=== PATIENT | male | born 1965 | race Hispanic/Latino ===

== ENCOUNTER 2019-12-09 03:01 | Emergency (ER) | payer MEDICARE | END 2019-12-09 03:29 | LOC: EDH 03:01 | DX: F41.9 Anxiety disorder, unspecified (principal); F32.9 Major depressive disorder, single episode, unspecified ==

== ENCOUNTER 2019-12-10 11:23 | Emergency (ER) | payer MEDICARE ==
[2019-12-10 13:10] LABS: BASOPHILS % (AUTO) 0.4 % (0.0-5.0); EOSINOPHILS % (AUTO) 2.7 % (0.0-8.0); HEMATOCRIT 39.8 % (42-54); MEAN CORPUSCULAR HGB CONC 34.4 g/dL (32.0-36.0); MEAN CORPUSCULAR VOLUME 84.3 fL (79-99); MONOCYTES % (AUTO) 6.6 % (3.0-13.0); NEUTROPHILS % (AUTO) 58.1 % (40.0-77.0); PLATELET COUNT (AUTO) 246 K/uL (130-400); RED BLOOD CELL COUNT(AUTO) 4.72 MIL/uL (4.50-6.20); RED CELL DISTRIBUTION WIDTH 12.6 % (11.0-15.5); WHITE BLOOD COUNT (AUTO) 8.5 K/uL (4.8-10.8)
[2019-12-10 13:27] LABS: ALANINE AMINOTRANSFERASE 21 U/L (12-78); ALBUMIN 3.2 g/dL (3.5-5.0); ALCOHOL, BLOOD < 3 mg/dL (0-10); ASPARTATE AMINOTRANSFERASE 18 U/L (10-37); BILIRUBIN,TOTAL 0.4 mg/dL (0.2-1.0); CARBON DIOXIDE 30 mmol/L (21-32); CHLORIDE 103 mmol/L (101-111); CREATININE 0.7 mg/dL (0.5-1.5); GLOMERULAR FILTR. RATE CALC 125 mL/min (>60); GLUCOSE,RANDOM 204 mg/dL (70-105); SODIUM SERUM 140 mmol/L (136-145); TOTAL PROTEIN, SERUM 6.7 g/dL (6.0-8.3); UREA NITROGEN, BLOOD 15 mg/dL (7-18)
[2019-12-10 13:28] LABS: ACETAMINOPHEN < 1 mcg/mL (10-29); POTASSIUM 2.8 mmol/L (3.5-5.1); SALICYLATE < 2.8 mg/dL (2.8-20.0)
[2019-12-10] MEDS ORDERED: OLANZAPINE 5 MG TAB PO ONE (13:30)
[2019-12-10] MEDS ORDERED: POTASSIUM BICARB/CIT AC 25 MEQ TABLET.EFF ONE (13:32)
[2019-12-10 15:55] LABS: APPEARANCE,URINE Clear (CLEAR); BILIRUBIN,URINE Negative (NEGATIVE); COLOR,URINE Yellow (YELLOW); GLUCOSE, URINE (UA) >=1000 mg/dL (NEGATIVE); KETONES,URINE 40 mg/dL (NEGATIVE); LEUKOCYTE ESTERASE ,URINE Negative (NEGATIVE); NITRATE,URINE Negative (NEGATIVE); OCCULT BLOOD,URINE Negative (NEGATIVE); PROTEIN,URINE Negative (NEGATIVE)
[2019-12-10 16:01] LABS: BACTERIA,URINE Rare /HPF (None Seen); MUCUS,URINE Rare LPF (None Seen); RBC,URINE 0-1 /HPF (0-1); SQUAMOUS EPITHELIAL CELL,UR Rare /HPF (0-2); WBC,URINE 0-1 /HPF (0-1)
[2019-12-10 16:03] LABS: AMPHET/METH SCREEN,URINE NEGATIVE (NEGATIVE); BARBITURATE SCREEN, URINE NEGATIVE (NEGATIVE); BENZODIAZEPINES SCREEN,URINE NEGATIVE (NEGATIVE); CANNABINOID SCREEN,URINE NEGATIVE (NEGATIVE); COCAINE SCREEN,URINE NEGATIVE (NEGATIVE); OPIATE SCREEN,URINE NEGATIVE (NEGATIVE); PHENCYCLIDINE SCREEN,URINE NEGATIVE (NEGATIVE)
== END 2019-12-10 17:15 | disposition home or self-care (01) ==
LOC: EDH 11:23
DX: F31.9 Bipolar disorder, unspecified (principal); Z72.0 Tobacco use
CPT/HCPCS: 36415; 80053; 80305; 81001; 85025; 99283; G0480; G0481

== ENCOUNTER 2020-01-04 14:21 | Emergency (ER) | payer MEDICARE | END 2020-01-04 15:10 | disposition home or self-care (01) | LOC: EDH 14:21 | DX: S60.051A Contusion of right little finger without damage to nail, initial encounter (principal); Z88.0 Allergy status to penicillin; X58.XXXA Exposure to other specified factors, initial encounter; Y93.89 Activity, other specified; Y92.098 Other place in other non-institutional residence as the place of occurrence of the external cause; Y99.8 Other external cause status | CPT/HCPCS: 99282 ==

== ENCOUNTER 2024-05-18 13:16 | Emergency (ER) | payer MEDICARE ==
[~2024-05-18] VITALS: Ht 162.6 cm; Wt 104.3 kg
[2024-05-18 13:32] VITALS: BP 156/81; PULSE 80; RESP 16; TEMP 98.1; O2SAT 98
--- NOTE | 2024-05-18 13:42 | ERN ---
General Chief Complaint: Medical Clearance Stated Complaint: HIGH BLOOD PRESSURE MEDICAL CLEARANCE Time Seen by MD: 13:16 History of Present Illness Initial Comments 59-year-old male here for medical clearance. Patient has a psychiatric disorder, he went to [facility] for admission but was found to have an elevated blood pressure reading. He currently has no other symptoms. Allergies: Coded Allergies: No Known Drug Allergies (Unverified Allergy, Unknown, 12/09/19) Past Medical History Past Medical History: Hypertension Past Surgical History: None ROS Dictation CONSTITUTIONAL: No chills, no fever, no weakness, no diaphoresis, no malaise. HEAD/FACE: No signs of trauma. EENT: No eye pain, no blurred vision, no tearing, no double vision, no ear pain, no ear discharge, no nose pain, no nasal congestion, no throat pain, no throat swelling, no mouth pain. RESPIRATORY: No cough, no orthopnea, no SOB, no stridor, no wheezing. CARDIOVASCULAR: No chest pain, no edema, no palpitations, no syncope. GASTROINTESTINAL/ABDOMINAL: No abdominal pain, no constipation, no diarrhea, no nausea, no vomiting. GENITOURINARY: No abnormal discharge, no dysuria, no frequent urination, no he maturia. No complaints of pain in the genitals. MUSCULOSKELETAL: No back pain, no gout, no joint pain, no joint swelling, no m uscle pain, no muscle stiffness, no neck pain. INTEGUMENTARY: No change in color, no change in hair/nails, no dryness, no lesi on, no lumps, no rash. NEUROLOGICAL/PSYCH: No anxiety, not depressed, no emotional problem, no headache, no numbness, no pre-existing deficit, no history of seizures, no tremors, no weakness. HEMATOLOGIC/LYMPHATIC: Not anemic, no history of blood clots, no apparent bleeding, no bruising, glands not swollen. All Systems Negative, Except as Noted. Physical Exam Physical Exam Dictation CONSTITUTIONAL: No chills, no fever, no weakness, no diaphoresis, no malaise. HEAD/FACE: No signs of trauma. EENT: No eye pain, no blurred vision, no tearing, no double vision, no ear pain, no ear discharge, no nose pain, no nasal congestion, no throat pain, no throat swelling, no mouth pain. RESPIRATORY: No cough, no orthopnea, no SOB, no stridor, no wheezing. CARDIOVASCULAR: No chest pain, no edema, no palpitations, no syncope. GASTROINTESTINAL/ABDOMINAL: No abdominal pain, no constipation, no diarrhea, no nausea, no vomiting. GENITOURINARY: No abnormal discharge, no dysuria, no frequent urination, no hematuria. No complaints of pain in the genitals. MUSCULOSKELETAL: No back pain, no gout, no joint pain, no joint swelling, no muscle pain, no muscle stiffness, no neck pain. INTEGUMENTARY: No change in color, no change in hair/nails, no dryness, no lesion, no lumps, no rash. NEUROLOGICAL/PSYCH: No anxiety, not depressed, no emotional problem, no heada lee, no numbness, no pre-existing deficit, no history of seizures, no tremors, no weakness. HEMATOLOGIC/LYMPHATIC: Not anemic, no history of blood clots, no apparent bleeding, no bruising, glands not swollen. All Systems Negative, Except as Noted. [facility] CC: Hypertension Historian: Patient Comorbidities: Hypertension, psychiatric disease Patient has stable vital signs here. He has no complaints. He has a known hypertensive. His blood pressure is 156/80. Other vital signs stable. No labs or imaging indicated Medically cleared ED Course Vital Signs Date Time Temp Pulse Resp B/P (MAP) Pulse Ox O2 Delivery O2 Flow Rate FiO2 05/18/24 13:32 98.1 80 16 156/81 98 Room Air* 0 21 05/18/24 13:18 98.1 104 16 156/81 98 Room Air 0 DX & DISP Disposition: Discharge Departure Impression: Primary Impression: Asymptomatic hypertension Condition: Stable Additional Instructions: Your vital signs show mild hypertension. Take your home blood pressure med ications. Return to the emergency department as needed. Referrals: SELF,REFERRAL (PCP) JASWINDER PATEL DO May 18, 2024 13:42
== END 2024-05-18 13:57 | disposition home or self-care (01) ==
LOC: EEVIPCON 13:16 → EDH 13:16
DX: I10 Essential (primary) hypertension (principal)
CPT/HCPCS: 99283

== ENCOUNTER 2025-02-06 13:38 | Emergency (ER) | payer MEDICAID ==
[~2025-02-06] VITALS: Ht 165.1 cm; Wt 99.8 kg
[2025-02-06] MEDS ORDERED: [UNRECOGNIZED DRUG - OTHER] IVP SCH (14:00)
[2025-02-06] MEDS ORDERED: LORAZEPAM IVP SCH (14:00)
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
[2025-02-06 14:15] LABS: IMMATURE GRANULOCYTE ABSOLUTE 0.04 K/uL (0-1); NUCLEATED RED BLOOD CELLS 0.0 % (0.0-0.19); PLATELET COUNT (AUTO) 243 K/uL (130-400); RED BLOOD CELL COUNT(AUTO) 4.48 MIL/uL (4.50-6.20); RED CELL DISTRIBUTION WIDTH 13.2 % (11.0-15.5); WHITE BLOOD COUNT (AUTO) 12.6 K/uL (4.8-10.8)
[2025-02-06] MEDS: MIDAZOLAM HCL 1 MG/ML 2ML VIAL IJ ONE (14:15)
[2025-02-06] MEDS: HALOPERIDOL INJ 5 MG/ML VIAL IM ONE (14:16)
[2025-02-06 14:21] LABS: CREATININE 0.8 mg/dL (0.5-1.3); GLOMERULAR FILTR. RATE CALC 108 mL/min (>90); GLUCOSE,RANDOM 359 mg/dL (70-105); SODIUM SERUM 135 mmol/L (136-145); UREA NITROGEN, BLOOD 13 mg/dL (7-18)
[2025-02-06] MEDS: MIDAZOLAM HCL 1 MG/ML 2ML VIAL IM ONE (14:21)
--- NOTE | 2025-02-06 14:25 | HMCIMG ---
EXAM: CR Chest, 1 View. CLINICAL HISTORY: screen COMPARISON: None provided. FINDINGS: LUNGS: The lungs show no infiltrate or other acute finding. PLEURAL SPACES: No pleural effusion or pneumothorax. MEDIASTINUM: Cardiac size and mediastinal contours within normal limits. BONES: No acute osseous abnormality. IMPRESSION: No acute cardiopulmonary pathology is evident. /[place]
[2025-02-06 14:29] LABS: CREATINE KINASE, TOTAL 305 U/L (21-232)
[2025-02-06 14:32] LABS: ALCOHOL, BLOOD < 3 mg/dL (0-10)
--- NOTE | 2025-02-06 15:24 | NUR ---
ATTEMPTED TO DO EKG AT THIS TIME, PATIENT SLAPPING BRASS RECLAIMER HANDS AWAY STATING TO NOT TOUCH HIM. ED MD AWARE./LUBNA
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
--- NOTE | 2025-02-06 16:06 | NUR ---
PATIENT ACTIVELY SHAKING STRETCHER AND CONTINUING TO YELL OUT PROFANITES TOWARDS STAFF AND SITTER. PATEINT IS PRETENDING TO SHOOT SITTER WITH FINGERS./LUBNA
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
[2025-02-06] MEDS: ZIPRASIDONE MESYLATE 20 MG/VIAL IM ONE ×3 (16:26→20:24)
[2025-02-06] MEDS: MIDAZOLAM HCL 1 MG/ML 2ML VIAL IVP ONE (16:27)
--- NOTE | 2025-02-06 16:35 | NUR ---
PATIENT IN BED EATING FINGER FOOD SNACKS, BUT CONTINUES TO YELL OUT PROFANITES TOWARDS SITTER./LUBNA
--- NOTE | 2025-02-06 17:27 | NUR ---
JENNIFER CALLED AT THIS TIME FOR SCREENER TO BE SENT./LUBNA
--- NOTE | 2025-02-06 17:32 | EKG ---
[facility] Test Date: 2025-02-06 Test Time: 17:28:12 Pat Name: DAYTON SHARIF Department: ED Room: Gender: M Orthopedics Pediatric Physician: [id number] : 1965 Requested By: JASWINDER PATEL Order Number: [id number] Reading MD: Medhat Philip Measurements Intervals [place] Rate: 85 P: 57 [place]: 168 QRS: 35 QRSD: 104 T: 1 QT: 389 QTc: 462 Interpretive Statements Sinus rhythm Low voltage, precordial leads No previous ECG available for comparison Electronically Signed On 02-07-2025 13:58:19 CDT by Medhat Philip Please click the below link to view image of tracing.
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
--- NOTE | 2025-02-06 18:36 | NUR ---
TROPICAL SCREENER AT BEDSIDE./LUBNA
--- NOTE | 2025-02-06 19:05 | NUR ---
TREMAINE WITH [facility] CONTACT: [phone]
[2025-02-06 19:59] LABS: ADD UA MICROSCOPIC YES; APPEARANCE,URINE CLEAR (CLEAR); GLUCOSE, URINE (UA) >=1000 mg/dL (NEGATIVE); LEUKOCYTE ESTERASE ,URINE NEGATIVE Leu/uL (NEGATIVE); NITRATE,URINE NEGATIVE (NEGATIVE); OCCULT BLOOD,URINE NEGATIVE (NEGATIVE)
[2025-02-06 20:00] LABS: SQUAMOUS EPITHELIAL CELL,UR RARE /HPF (0-2)
[2025-02-06 20:01] LABS: AMPHET/METH SCREEN,URINE NEGATIVE (NEGATIVE); BARBITURATE SCREEN, URINE NEGATIVE (NEGATIVE); CANNABINOID SCREEN,URINE NEGATIVE (NEGATIVE); COCAINE SCREEN,URINE NEGATIVE (NEGATIVE)
--- NOTE | 2025-02-06 20:34 | NUR ---
PER TROPICAL SCREENER [place] PATIENT DOES NOT MEET CRITERIA FOR PSYCH AT THIS MOMENT Addendum: 02/07/25 at 0305 by [id number] PER [facility] SCREEN [place] PATIENT DOES NOT MEET CRITERIA FOR PSYCH ADMISSION/TRANSFER AT THIS MOMENT
--- NOTE | 2025-02-06 20:45 | NUR ---
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 ED MD MADE AWARE
--- NOTE | 2025-02-06 22:52 | NUR ---
FOLLOW UP CALL MADE WITH JENNIFER STEVENS; SPOKE WITH JOSE WEBSTER AND MADE AWARE THAT PATIENT NO LONGER HAS PLACEMENT WITH [facility]. PER JOSE PATIENT STILL DOES NOT REQUIRE ADMISSION OR PLACEMENT AND THAT NO FURTHER RECCOMENDATIONS CAN BE MADE FOR HIM ON BEHALF OF JENNIFER STEVENS. ED MD MADE AWARE
--- NOTE | 2025-02-06 23:05 | NUR ---
PATIENT IS BEING INTRUSIVE AND WANDERING HALLS; SEARCHING [employer] CAN FOR ARTICLES AND FOOD. SNACK PROVIDED AND PATIENT REDIRECTED BACK INTO BED.
--- NOTE | 2025-02-07 00:05 | NUR ---
PT CALLING STAFF MEMBERS AND PULLING AWAY FROM PT CARE TO TALK. INTRUSIVE, PACING HALLWAYS. NEEDING CONSTANT REDIRECTION
--- NOTE | 2025-02-07 01:45 | NUR ---
PATIENT WANDERING IN HALLS AND SEARCHING FOR COFFEE. PATIENT REDIRECTED BACK AND JUICE AND SNACK PROVIDED
--- NOTE | 2025-02-07 02:15 | NUR ---
PT SITTING IN EMS BREAK ROOM, DRINKING SOMEONES COFFEE.
--- NOTE | 2025-02-07 02:47 | NUR ---
PT WONDERING IN HALLS, WALKING TO BACK EMS BAY DOORS. TRYING TO GET INTO HOUSE KEEPING CART. PT REDIRECTED, WITH VERBAL REDIRECTION.
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
[2025-02-07 03:20] VITALS: BP 138/67; PULSE 86; RESP 18; TEMP 98.3; O2SAT 98
--- NOTE | 2025-02-07 03:23 | NUR ---
PATIENT DISCHARGED AT THIS TIME AND WALKED TO [facility]; IV D/C ASEPTICALLY WITH CATHETER INTACT
== END 2025-02-07 03:23 | disposition home or self-care (01) ==
LOC: EDBD 13:38 → EDH 13:38 → MERGE 13:38 → EDH 02-07 03:23
DX: F99 Mental disorder, not otherwise specified (principal); E11.65 Type 2 diabetes mellitus with hyperglycemia; E78.00 Pure hypercholesterolemia, unspecified; F20.9 Schizophrenia, unspecified; I10 Essential (primary) hypertension
CPT/HCPCS: 99285; 96374; 96375; 71045; 82550; 84484; 80048; 80305; 85025; 81001; 36415; 93005; 96372 ×6; G0481; J1200 ×4; J1630; J3360; J2250 ×2; J3486 ×2